=== PATIENT | male | born 1965 | race Caucasian/White ===

== ENCOUNTER → 2017-11-23 13:22 | Outpatient (POV) | payer OTHER, SELFPAY | DX: Z00.00 Encounter for general adult medical examination without abnormal findings (principal) ==

== ENCOUNTER → 2018-12-13 14:06 | Outpatient (CLI) | payer MEDICAID, SELFPAY ==
--- NOTE | 2018-12-13 14:21 | CT_ITS ---
CT lung screening EXAM: CT LUNG LOW DOSE WO CONTRAST HISTORY: 40 pack-year smoking history, asymptomatic for lung cancer ITS.REASON: H/O NICOTINE DEPENDENCE ORDERING PHYSICIAN: Beth Serrano MD PATIENT AGE: 53 years COMPARISON: None TECHNIQUE: The exam was performed on a GE Light Speed [address] scanner using 2.90 mGy CTDI. A low dose helical CT CHEST was performed on a multi-detector scanner. All CT scans at the facility use one or more dose reduction, viz: automated exposure control, ma/kV adjustment per patient size (including targeted exams where dose is matched to indication, i.e. head), or iterative reconstruction technique. The LDCT was performed in a facility that meets the criteria for the screening program. Data regarding this exam was submitted to [employer] which is an approved registry. The order for this exam indicates that it came as a result of a lung cancer screening counseling shard decision-making visit that included all the elements required of such a visit including smoking cessation. The radiologist interpreting this exam meets the CMS criteria for the LDCT lung cancer screening program. The exam is reported using the Lung-RADS classification scale and reported to the [employer]CR registry. NOTE: This study was performed for the specific purposes of lung cancer screening and is not an alternative to diagnostic chest CT. RADIATION DOSE: CTDI vol(CT dose Index-volume) = 2.90mG DLP (Dose Length Product) = 102.12 mGcm FINDINGS: COPD, centrilobular emphysema. 5 mm noncalcified nodule right apex medially not readily apparent on the previous exam axial image #18 6 mm noncalcified nodule right upper lobe anteriorly axial image #31 Calcified granuloma right upper lobe posteriorly 6 mm noncalcified nodule left upper lobe medially adjacent to the mediastinum not significant changed Coronary artery calcifications Hepatomegaly IMPRESSION: 1. Lung RADS Category: 4, mildly suspicious regarding the 2 new right upper lobe nodules 2. Other findings: COPD/centrilobular emphysema, coronary artery calcifications, hepatomegaly RECOMMENDATIONS: [address] of the chest without and with contrast
== END ==
PROVIDERS: PCP Family Medicine; Visit Provider Family Medicine
DX: Z12.2 Encounter for screening for malignant neoplasm of respiratory organs (principal); Z87.891 Personal history of nicotine dependence

== ENCOUNTER → 2019-07-16 14:58 | Outpatient (CLI) | payer BC, SELFPAY ==
--- NOTE | 2019-07-16 15:06 | XR_ITS ---
PROCEDURE: XR RIBS RT MIN 3V W CXR1V CLINICAL INDICATION: S/P FALL Posttraumatic pain COMPARISON: CXR CHEST(2 VIEWS-NOT PORTABLE) from 05/22/[address] CHEST W/ CONTRAST from 05/29/2014 CXR1 CHEST-PORTABLE from 07/01/2014 CXR CHEST(2 VIEWS-NOT PORTABLE) from 08/22/2014 FINDINGS: There is a nondisplaced fracture involving the posterior aspect of the right 9th rib. There are old right 3rd and 4th rib fractures. No evidence of pneumothorax.. Frontal view of the chest shows no acute finding. There is some minimal blunting of the left CP angle not significantly changed from 08/22/2014 IMPRESSION: Nondisplaced right 9th rib fracture Dictated by: Ace Khanna MD 07/16/2019 16:06 Electronically signed by Ace Khanna MD in [place] 07/16/2019 16:06
== END ==
PROVIDERS: PCP Family Medicine; Visit Provider Family Medicine
DX: R07.89 Other chest pain (principal)
CPT/HCPCS: 71101